=== PATIENT | male | born 1985 ===

== ENCOUNTER 2017-05-14 15:07 | Emergency (ER) | payer OTHER ==
[2017-05-14 15:24] VITALS: BP 139/74; PULSE 91; RESP 17; TEMP 98.7; O2SAT 100
--- NOTE | 2017-05-14 15:33 | C.PDOC ---
History Of Present Illness 31-year-old male, presents to the emergency department with complaints of ankle pain. Patient states he twisted right ankle at work yesterday, Pain is worse with walking. He is icing the area and taking Tylenol with minimal relief. Patient denies numbness/weakness. Time Seen by Provider: 05/14/17 15:26 Chief Complaint (Nursing): Lower Extremity Problem/Injury History Per: Patient History/Exam Limitations: no limitations Past Medical History Reviewed: Historical Data, Nursing Documentation, Vital Signs Vital Signs: Last Vital Signs Temp 98.7 F 05/14/17 15:22 Pulse 91 H 05/14/17 15:22 Resp 17 05/14/17 15:22 BP 139/74 05/14/17 15:22 Pulse Ox 100 05/14/17 16:46 Surgical History: Cholecystectomy Family History: States: No Known Family Hx - Social History Hx Alcohol Use: No Hx Substance Use: No - Immunization History Hx Tetanus Toxoid Vaccination: No Hx Influenza Vaccination: No Hx Pneumococcal Vaccination: No Review Of Systems Musculoskeletal: Positive for: Other (R ankle pain) Neurological: Negative for: Weakness, Numbness Physical Exam - Physical Exam Appears: Non-toxic, No Acute Distress Skin: Normal Color, Warm, Dry, No Rash Head: Normacephalic Eye(s): bilateral: PERRL Nose: Normal Oral Mucosa: Moist Lips: Normal Appearing Neck: Normal ROM Extremity: Normal ROM, Capillary Refill (<2 seconds), No Deformity, Other ( minimal swelling to lateral right ankle with tenderness, normal ROM.) Pulses: Left Dorsalis Pedis: Normal, Right Dorsalis Pedis: Normal Neurological/Psych: Oriented x3, Normal Speech ED Course And Treatment O2 Sat by Pulse Oximetry: 100 Medical Decision Making Medical Decision Making: Impression: ankle pain Plan: xray of ankle Progress: Xray reviewed showing mild swelling, no fracture or dislocation RE-Eval: Patient reports mild improvement of pain. Igor bandage applied. Patient instructed to take analgesic as needed and to follow up with PCP or orthopedic if pain persists Disposition Counseled Patient/Family Regarding: Diagnosis, Need For Followup, Rx Given - Disposition Referrals: Keshawn Zeng MD [Staff Provider] - Disposition: HOME/ ROUTINE Disposition Time: 16:45 Condition: GOOD Additional Instructions: Tu radiografa fue normal, sin fractura. Por favor aplique hielo en el kadeem 15 minutos lissett veces al da. [place] Motrin cuando sea necesario para el dolor cada 6 horas, con alimentos para no alterar el estmago. Norberto un seguimiento con ortopedia si el dolor persiste luisito amarilis semana. Instructions: Ankle Sprain Forms: Your Tribute (Iranian), Work Excuse Print Language: CROATIAN - POA Present On Arrival: None - Clinical Impression Clinical Impression: Right ankle sprain - Scribe Statement The provider has reviewed the documentation as recorded by the Scribe (Whitney Johnson) All medical record entries made by the Scribe were at my direction and personally dictated by me. I have reviewed the chart and agree that the record accurately reflects my personal performance of the history, physical exam, medical decision making, and the department course for this patient. I have also personally directed, reviewed, and agree with the discharge instructions and disposition.
--- NOTE | 2017-05-14 17:25 | RAD ---
PROCEDURE: Right ankle dated 05/14/2017 HISTORY: pain and swelling after twisting injury COMPARISON: No prior study available for comparison FINDINGS: BONES: No evidence of acute displaced fracture nor dislocation. The osseous structures appear intact. There is a small corticated density within the soft tissues abutting the inferior tip of the lateral malleolus within the inferior joint space margin that probably represents mineralization . Mild some all posttraumatic mineralization. There is mild overlying soft tissue swelling lateral malleolus. JOINTS: Normal. No osteoarthritis. Ankle mortise maintained. Talar dome intact SOFT TISSUES: As above. OTHER FINDINGS: None. IMPRESSION: No evidence of acute displaced fracture nor dislocation. Probable small focus of posttraumatic mineralization within the soft tissues adjacent to the inferior tip lateral malleolus and within the inferior joint space margin. Mild soft tissue swelling overlies the lateral malleolus
== END 2017-05-14 17:14 | disposition home or self-care (01) ==
LOC: C.ER 15:07
DX: S93.401A Sprain of unspecified ligament of right ankle, initial encounter (principal); X50.9XXA Other and unspecified overexertion or strenuous movements or postures, initial encounter; Y92.89 Other specified places as the place of occurrence of the external cause; Y99.0 Civilian activity done for income or pay